=== PATIENT | female | born 1995 | race Caucasian/White ===

== ENCOUNTER 2023-03-19 15:03 | Emergency (ER) | payer MEDICAID ==
[~2023-03-19] VITALS: Ht 167.6 cm; Wt 87.0 kg
[~2023-03-19 15:03] MED LIST: CYCL-1 PO; HYDR-4383 PO; OMEP20CA4 PO; ONDA4TAB6 PO; SUCR1TAB34 PO
--- NOTE | 2023-03-19 15:51 | NUR ---
PT REPORTS TO ER WITH LEFT ANKLE PAIN FROM ROLLING ANKLE WHILE PLAYING VOLLEYBALL. PAIN LEVEL 12/20/ PT CMS INTACT.
--- NOTE | 2023-03-19 17:04 | NUR ---
CALLED RADIOLOGIST REGARDING PT XRAY.
[2023-03-19 17:36] VITALS: BP 111/72; PULSE 62; RESP 18; TEMP 98.5; O2SAT 96
--- NOTE | 2023-03-19 17:59 | NUR ---
AGREE WITH [facility] GENERAL ASSESSMENT. PT IN STABLE CONDITION.
== END 2023-03-19 18:01 | disposition home or self-care (01) ==
LOC: ER 15:03
DX: S93.492A Sprain of other ligament of left ankle, initial encounter (principal); X58.XXXA Exposure to other specified factors, initial encounter; Y93.89 Activity, other specified; Y92.89 Other specified places as the place of occurrence of the external cause; Y99.9 Unspecified external cause status; G89.29 Other chronic pain; M54.9 Dorsalgia, unspecified
CPT/HCPCS: 73610; 99284; L4360

== ENCOUNTER 2023-05-06 10:15 | Emergency (ER) | payer MEDICAID ==
[~2023-05-06] VITALS: Ht 170.2 cm; Wt 87.0 kg
[2023-05-06 10:19] VITALS: BP 126/78; PULSE 95; RESP 16; TEMP 98; O2SAT 97
== END 2023-05-06 11:40 | disposition left against medical advice (07) ==
LOC: ER 10:15
DX: M79.672 Pain in left foot (principal); Z53.21 Procedure and treatment not carried out due to patient leaving prior to being seen by health care provider
CPT/HCPCS: 99281

== ENCOUNTER 2023-11-14 07:37 | Outpatient (CLI) | payer MEDICAID | END 2023-11-14 23:59 | disposition home or self-care (01) | LOC: MRI 07:37 | PROVIDERS: ATTEND Podiatrist Foot & Ankle Surgery | DX: S93.325A Dislocation of tarsometatarsal joint of left foot, initial encounter (principal); M79.672 Pain in left foot; M25.472 Effusion, left ankle; M25.375 Other instability, left foot; M19.072 Primary osteoarthritis, left ankle and foot; M21.6X2 Other acquired deformities of left foot; X58.XXXA Exposure to other specified factors, initial encounter; Y93.89 Activity, other specified; Y92.89 Other specified places as the place of occurrence of the external cause; Y99.8 Other external cause status; R60.9 Edema, unspecified | CPT/HCPCS: 73718 ==